=== PATIENT | female | born 1955 | race Caucasian/White ===

== ENCOUNTER 2022-01-16 12:51 | Inpatient (IN) | payer MEDICARE, MEDICAID ==
[~2022-01-16] VITALS: Ht 162.6 cm; Wt 77.3 kg
[2022-01-16] VITALS (7 sets, daily range): BP systolic 111–157; BP diastolic 72–98
[2022-01-16] MEDS ORDERED: pantoprazole 40MG/NS 100ML BAG 100 ML IV STA (13:14)
[2022-01-16] MEDS ORDERED: mag hydrox/Alum hydrox/simeth 30ml oral suspension PO PRN (13:35)
[2022-01-16] MEDS ORDERED: magnesium 4gm in 100ml NS 100 ML IV PRN (13:35)
[2022-01-16] MEDS ORDERED: POTASSIUM BICARB 20meq eff tab 20 MEQ TABLET.EFF PO PRN (13:35)
[2022-01-16] MEDS ORDERED: acetaminophen 325mg tablet PO PRN (13:35)
[2022-01-16] MEDS ORDERED: potassium CL 10mEq/100ml bag 100 ML IV PRN (13:35)
[2022-01-16] MEDS ORDERED: magnesium 2GM in 50ml NS 50 ML IV PRN (13:35)
[2022-01-16] MEDS ORDERED: fentaNYL/PF 50MCG/1 ML 2ML syringe ONE (13:41)
[2022-01-16] MEDS ORDERED: MIDAZolam 1 MG/ML 5ML VIAL ONE (13:41)
[2022-01-16] MEDS ORDERED: LIDOcaine Viscous 15ml cup ONE (13:42)
[2022-01-16] MEDS ORDERED: LOSA50TA64 PO (15:22)
[2022-01-16] MEDS ORDERED: LEVO112T5 PO (15:23)
[2022-01-16] MEDS: normal saline 1000ml 1,000 ML IV SCH (15:28)
[2022-01-16 16:04] LABS: HEMATOCRIT 27.3 % (35.0-45.0); HEMOGLOBIN 9.3 g/dl (12.0-16.0); MEAN CORPUSCULAR HEMOGLOBIN 32.8 PG (27.0-31.0); MEAN CORPUSCULAR VOLUME 96.3 FL (78-98); MEAN PLATELET VOLUME 8.8 FL (7.4-10.4); PLATELET COUNT 238 X10'3 (140-440); RED BLOOD COUNT 2.84 X10'6 (4.20-5.60); WHITE BLOOD COUNT 9.5 X10'3 (4.5-11.0)
[2022-01-16] MEDS: docusate sod 100mg capsule PO SCH (20:00)
[2022-01-16] MEDS: K and/or MAG REPLACEMENT MC SCH (20:00)
[2022-01-16] MEDS: pantoprazole 40MG/NS 100ML BAG 100 ML IV SCH (20:00)
[2022-01-16 20:56] LABS: HEMATOCRIT 24.5 % (35.0-45.0); HEMOGLOBIN 8.3 g/dl (12.0-16.0); MEAN CORPUSCULAR HEMOGLOBIN 32.6 PG (27.0-31.0); MEAN CORPUSCULAR HGB CONC 33.7 g/dL (33.0-36.5); MEAN CORPUSCULAR VOLUME 96.8 FL (78-98); PLATELET COUNT 219 X10'3 (140-440); RED BLOOD COUNT 2.53 X10'6 (4.20-5.60); RED CELL DISTRIBUTION WIDTH 15.2 % (11.5-14.5); WHITE BLOOD COUNT 8.7 X10'3 (4.5-11.0)
[2022-01-16] MEDS ORDERED: pantoprazole 40MG/NS 100ML BAG 100 ML IV ONE (21:00)
[2022-01-16] MEDS: ondansetron/PF 4mg/2ml inj IV PRN (22:37)
[2022-01-17] VITALS (10 sets, daily range): BP systolic 91–153; BP diastolic 53–82
[2022-01-17] MEDS: normal saline 1000ml 1,000 ML IV SCH ×3 (01:32→19:19)
[2022-01-17 07:17] LABS: HEMATOCRIT 22.4 % (35.0-45.0); HEMOGLOBIN 7.6 g/dl (12.0-16.0); MEAN CORPUSCULAR HEMOGLOBIN 32.7 PG (27.0-31.0); MEAN CORPUSCULAR HGB CONC 33.9 g/dL (33.0-36.5); MEAN CORPUSCULAR VOLUME 96.7 FL (78-98); MEAN PLATELET VOLUME 8.6 FL (7.4-10.4); PLATELET COUNT 175 X10'3 (140-440); RED BLOOD COUNT 2.32 X10'6 (4.20-5.60); RED CELL DISTRIBUTION WIDTH 14.9 % (11.5-14.5); WHITE BLOOD COUNT 7.5 X10'3 (4.5-11.0)
[2022-01-17 07:29] LABS: ALANINE AMINOTRANSFERASE 22 U/L (12-78); ALBUMIN 2.9 G/DL (3.4-5.0); ALBUMIN/GLOBULIN RATIO 1.2 (1.1-1.5); ALKALINE PHOSPHATASE 34 IU/L (46-116); ANION GAP 6 (8-16); ASPARTATE AMINO TRANSFERASE 21 U/L (10-37); BILIRUBIN,TOTAL 0.2 MG/DL (0.1-1.0); BLOOD UREA NITROGEN 22 MG/DL (7-18); BUN/CREATININE RATIO 22.4 (6.6-38.0); CALCIUM 7.4 MG/DL (8.5-10.1); CHLORIDE 115 MMOL/L (99-107); CREATININE 0.98 MG/DL (0.40-0.90); GLUCOSE 110 MG/DL (70-104); MAGNESIUM 1.6 MG/DL (1.5-2.4); POTASSIUM 3.3 MMOL/L (3.5-5.1); SODIUM 146 MMOL/L (135-145); TOTAL CARBON DIOXIDE 25.4 MMOL/L (24-32); TOTAL PROTEIN 5.3 G/DL (6.4-8.2); eGFR 57 ML/MIN
[2022-01-17] MEDS: docusate sod 100mg capsule PO SCH ×3 (08:00→20:03)
[2022-01-17] MEDS: K and/or MAG REPLACEMENT MC SCH ×2 (08:00→19:19)
[2022-01-17] MEDS: levoTHYROXINE 112mcg tablet PO SCH (09:13)
[2022-01-17] MEDS: pantoprazole 40MG/NS 100ML BAG 100 ML IV SCH ×2 (09:13→19:19)
[2022-01-17] MEDS: losartan 50mg tablet PO SCH (09:14)
[2022-01-17] MEDS: POTASSIUM BICARB 20meq eff tab 20 MEQ TABLET.EFF PO PRN ×3 (09:24→19:23)
[2022-01-17 14:24] LABS: HEMOGLOBIN 7.1 g/dl (12.0-16.0); MEAN CORPUSCULAR HEMOGLOBIN 32.6 PG (27.0-31.0); MEAN CORPUSCULAR HGB CONC 33.4 g/dL (33.0-36.5); MEAN CORPUSCULAR VOLUME 97.5 FL (78-98); MEAN PLATELET VOLUME 7.8 FL (7.4-10.4); PLATELET COUNT 164 X10'3 (140-440); RED BLOOD COUNT 2.18 X10'6 (4.20-5.60); RED CELL DISTRIBUTION WIDTH 15.6 % (11.5-14.5); WHITE BLOOD COUNT 7.6 X10'3 (4.5-11.0)
[2022-01-17 14:44] LABS: HEMATOCRIT 21.3 % (35.0-45.0)
[2022-01-17] MEDS: ondansetron/PF 4mg/2ml inj IV PRN (16:41)
[2022-01-17 22:10] LABS: HEMATOCRIT 22.6 % (35.0-45.0); HEMOGLOBIN 7.7 g/dl (12.0-16.0); MEAN CORPUSCULAR HEMOGLOBIN 32.7 PG (27.0-31.0); MEAN CORPUSCULAR HGB CONC 34.2 g/dL (33.0-36.5); MEAN CORPUSCULAR VOLUME 95.7 FL (78-98); MEAN PLATELET VOLUME 8.6 FL (7.4-10.4); PLATELET COUNT 140 X10'3 (140-440); RED BLOOD COUNT 2.36 X10'6 (4.20-5.60); RED CELL DISTRIBUTION WIDTH 15.1 % (11.5-14.5); WHITE BLOOD COUNT 6.2 X10'3 (4.5-11.0)
[2022-01-18] MEDS: normal saline 1000ml 1,000 ML IV SCH (04:06)
[2022-01-18] MEDS ORDERED: acetaminophen 325mg tablet PO PRN (04:40)
[2022-01-18 05:48] LABS: ALANINE AMINOTRANSFERASE 26 U/L (12-78); ALBUMIN 2.9 G/DL (3.4-5.0); ALBUMIN/GLOBULIN RATIO 1.3 (1.1-1.5); ALKALINE PHOSPHATASE 36 IU/L (46-116); ANION GAP 4 (8-16); ASPARTATE AMINO TRANSFERASE 30 U/L (10-37); BILIRUBIN,TOTAL 0.3 MG/DL (0.1-1.0); BLOOD UREA NITROGEN 7 MG/DL (7-18); BUN/CREATININE RATIO 7.1 (6.6-38.0); CALCIUM 7.6 MG/DL (8.5-10.1); CHLORIDE 110 MMOL/L (99-107); CREATININE 0.98 MG/DL (0.40-0.90); GLUCOSE 98 MG/DL (70-104); MAGNESIUM 1.5 MG/DL (1.5-2.4); POTASSIUM 3.7 MMOL/L (3.5-5.1); SODIUM 142 MMOL/L (135-145); TOTAL CARBON DIOXIDE 28.1 MMOL/L (24-32); TOTAL PROTEIN 5.1 G/DL (6.4-8.2); eGFR 57 ML/MIN
[2022-01-18 06:00] VITALS: BP 128/77
[2022-01-18] MEDS: pantoprazole 40MG/NS 100ML BAG 100 ML IV SCH (07:38)
[2022-01-18] MEDS: levoTHYROXINE 112mcg tablet PO SCH (07:38)
[2022-01-18] MEDS: losartan 50mg tablet PO SCH (07:39)
[2022-01-18] MEDS: docusate sod 100mg capsule PO SCH (08:00)
[2022-01-18] MEDS: K and/or MAG REPLACEMENT MC SCH (08:00)
[2022-01-18 10:43] LABS: HEMATOCRIT 23.8 % (35.0-45.0); HEMOGLOBIN 8.2 g/dl (12.0-16.0); MEAN CORPUSCULAR HGB CONC 34.3 g/dL (33.0-36.5); MEAN CORPUSCULAR VOLUME 96.1 FL (78-98); MEAN PLATELET VOLUME 8.6 FL (7.4-10.4); PLATELET COUNT 145 X10'3 (140-440); RED BLOOD COUNT 2.48 X10'6 (4.20-5.60); RED CELL DISTRIBUTION WIDTH 14.8 % (11.5-14.5); WHITE BLOOD COUNT 4.6 X10'3 (4.5-11.0)
[2022-01-18 11:09] VITALS: BP 114/62
[2022-01-18] MEDS ORDERED: PANT40TA54 PO (11:23)
== END 2022-01-18 14:30 | disposition home or self-care (01) | DRG 368 ==
LOC: ER 12:51 → ED HOLD 13:37 → ORTHO 4S 19:50
PROVIDERS: ADMIT Family Medicine; ATTEND Family Medicine
PROC: 0DB68ZX Excision of Stomach, Via Natural or Artificial Opening Endoscopic, Diagnostic (ICD-10-PCS; principal; 2022-01-16)
PROC: 30233N1 Transfusion of Nonautologous Red Blood Cells into Peripheral Vein, Percutaneous Approach (ICD-10-PCS; 2022-01-17)
DX: K21.01 Gastro-esophageal reflux disease with esophagitis, with bleeding (principal); K29.71 Gastritis, unspecified, with bleeding; E87.0 Hyperosmolality and hypernatremia; I10 Essential (primary) hypertension; K44.9 Diaphragmatic hernia without obstruction or gangrene; E87.6 Hypokalemia; F12.90 Cannabis use, unspecified, uncomplicated; E03.9 Hypothyroidism, unspecified; Z82.49 Family history of ischemic heart disease and other diseases of the circulatory system; Z88.8 Allergy status to other drugs, medicaments and biological substances; Z79.899 Other long term (current) drug therapy
CPT/HCPCS: 36415; 36430; 43239; 80053; 83735; 85027; 86885; 86900; 86901; 86920; 87081; 88305; 99153; 99285; A4620; A6258; A6402; C9113; G0378; J2250; J2405; J3010; J7030; J7040; P9016

== ENCOUNTER 2024-05-13 09:07 | Day surgery (SDC) | payer MEDICARE, MEDICAID ==
[~2024-05-13] VITALS: Ht 162.6 cm; Wt 72.7 kg
[~2024-05-13 09:07] MED LIST: CYCL-1 PO; EZET10TA48 PO; LEVO112T5 PO; LOSA50TA64 PO; ONDA-245 PO; PANT40TA54 PO
[2024-05-13 09:24] VITALS: BP 168/108; PULSE 86; RESP 16; TEMP 98.1
[2024-05-13] MEDS ORDERED: simethicone 40mg/0.6ml oral drops 30ml ONE (09:38)
[2024-05-13] MEDS ORDERED: propofol inj 20 ML IV ONE (09:45)
[2024-05-13 10:00] VITALS: BP 127/90; PULSE 76; RESP 16; O2SAT 99
[2024-05-13 10:10] VITALS: BP 151/101; PULSE 77; RESP 15; O2SAT 99
[2024-05-13 10:20] VITALS: BP 165/109; PULSE 77; RESP 16; O2SAT 99
[2024-05-13 10:30] VITALS: BP 169/83; PULSE 78; RESP 16; O2SAT 99
== END 2024-05-13 10:35 | disposition home or self-care (01) ==
LOC: GI LAB 09:07
PROVIDERS: ATTEND Internal Medicine Gastroenterology
DX: R13.10 Dysphagia, unspecified (principal); K21.00 Gastro-esophageal reflux disease with esophagitis, without bleeding; I10 Essential (primary) hypertension; K29.70 Gastritis, unspecified, without bleeding; K29.80 Duodenitis without bleeding; Z88.8 Allergy status to other drugs, medicaments and biological substances; Z79.899 Other long term (current) drug therapy
CPT/HCPCS: 43239; A4620; J2704; J7030; Z7512